=== PATIENT | male | born 1955 | race Two or more races ===

== ENCOUNTER 2020-07-22 23:31 | Emergency (ER) | payer BC, MEDICAID ==
[~2020-07-22] VITALS: Ht 172.7 cm; Wt 78.0 kg
--- NOTE | 2020-07-22 23:36 | NUR ---
PT BIBRA C/O NOSEBLEED S/P NASAL BIOPSY X1DAY. PER EMS PT + FOR ORTHOSTATIC VS. PT AAOX4 BREATHING EVENLY AND UNLABORED. PT STATES THAT HE HAS "PAIN ON THE RIGHT SIDE OF MY FACE AFTER THE PROCEDURE YESTERDAY." PT ATTACHED TO MONITOR AND POX. VSS PT SKIN WARM, DRY, AND INTACT. PT HAS 18G IN LEFT AC. PT GIVEN BLANKET AND CALL LIGHT WITHIN REACH
--- NOTE | 2020-07-22 23:47 | NUR ---
LAB AT BEDSIDE
[2020-07-23 00:01] LABS: BASOPHILS % (AUTO) 0.3 % (0.0-2.0); HEMATOCRIT 36 % (39-51); HEMOGLOBIN 12.1 g/dL (13.5-17.5); LYMPHOCYTES # (AUTO) 1.4 /CMM (0.8-4.8); LYMPHOCYTES % (AUTO) 15.3 % (20.0-44.0); MEAN CORPUSCULAR HGB CONC 33 g/dl (31.0-36.0); MEAN CORPUSCULAR VOLUME 86 fL (80-96); MONOCYTES # (AUTO) 0.7 /CMM (0.1-1.30); MONOCYTES % (AUTO) 7.7 % (2.0-12.0); NEUTROPHILS # (AUTO) 6.7 /CMM (1.8-8.9); NEUTROPHILS % (AUTO) 75.7 % (43.0-81.0); PLATELET COUNT (AUTO) 250 /CMM (150-450); RED BLOOD CELL COUNT(AUTO) 4.19 MIL/uL (4.5-6.0); WHITE BLOOD COUNT (AUTO) 8.9 K/uL (4.3-11.0)
--- NOTE | 2020-07-23 00:01 | NUR ---
XRAY AT BEDSIDE
[2020-07-23 00:10] LABS: CALCIUM, SERUM 9.1 mg/dL (8.5-10.1); CARBON DIOXIDE 30 mmol/L (21-32); CHLORIDE 100 mmol/L (98-107); CREATININE 1.3 mg/dL (0.6-1.3); GLUCOSE 151 mg/dL (74-106); SODIUM SERUM 135 mmol/L (136-145); UREA NITROGEN, BLOOD 16 mg/dL (7-18)
--- NOTE | 2020-07-23 00:35 | NUR ---
PT REFUSING COVID SWAB ASKING TO LEAVE THE HOSPITAL
--- NOTE | 2020-07-23 00:36 | NUR ---
Patient does not wish to proceed with medical care recommended by Dr. Salmon. Patient given information related to possible complications, up to and including , which could occur as a result of leaving the hospital at this time. Patient verbalizes understanding of risks involved due to leaving against medical advice. Patient has signed AMA form.
[2020-07-23 00:47] VITALS: BP 123/65
== END 2020-07-23 00:36 | disposition left against medical advice (07) ==
LOC: ER 23:33
DX: R53.1 Weakness (principal); E78.5 Hyperlipidemia, unspecified; E11.9 Type 2 diabetes mellitus without complications; Z88.5 Allergy status to narcotic agent
CPT/HCPCS: 36415; 71045-TC; 80048-TC; 84484-TC; 85025-TC; 86850-TC

== ENCOUNTER 2022-06-22 21:09 | Emergency (ER) | payer BC, OTHER ==
[~2022-06-22] VITALS: Ht 172.7 cm; Wt 78.0 kg
--- NOTE | 2022-06-22 21:10 | NUR ---
[id number] FROM HOME FOR GEN WEAKNESS, ON HOME O2, HX STG IV LUNG CA. PLACED IN BED, AAOX4, BREATHING EVEN AND UNLABORED SATURATING AT 97% WITH O2 3LIT VIA NC.
[2022-06-22] MEDS ORDERED: HYDROCODONE/APAP 5/325MG TABLET PO ONE (22:30)
[2022-06-22] MEDS ORDERED: IV NS 0.9% 1,000 ML BAG IV ONE (22:30)
--- NOTE | 2022-06-22 22:35 | NUR ---
BLOOD DRAWN AND SENT TO LAB
[2022-06-22] MEDS ORDERED: HYDROCODONE/APAP 5/325MG TABLET ONE (22:45)
--- NOTE | 2022-06-22 22:57 | NUR ---
UPDATE RONAL (DAUGHTER) [phone]
[2022-06-22] MEDS ORDERED: IV NS 0.9% 250 ML IV ONE (23:11)
[2022-06-22] MEDS ORDERED: IOHEXOL-350 100 ML VIAL IV ONE (23:11)
[2022-06-22] MEDS ORDERED: CT SWABBABLE VALVE TRANS SET 1 EA INFUS.SET MC ONE (23:11)
[2022-06-22 23:20] LABS: BASOPHILS # (AUTO) 0.2 K/uL (0.0-0.2); BASOPHILS % (AUTO) 3.3 % (0.0-2.0); EOSINOPHILS % (AUTO) 2.5 % (0.0-6.0); HEMATOCRIT 29 % (39-51); HEMOGLOBIN 9.4 g/dL (13.5-17.5); LYMPHOCYTES # (AUTO) 0.6 K/uL (0.8-4.8); LYMPHOCYTES % (AUTO) 8.4 % (20.0-44.0); MEAN CORPUSCULAR HGB CONC 32 g/dl (31.0-36.0); MEAN CORPUSCULAR VOLUME 83 fL (80-96); MONOCYTES # (AUTO) 0.6 K/uL (0.1-1.30); MONOCYTES % (AUTO) 8.7 % (2.0-12.0); NEUTROPHILS # (AUTO) 5.3 K/uL (1.8-8.9); NEUTROPHILS % (AUTO) 77.1 % (43.0-81.0); PLATELET COUNT (AUTO) 392 K/uL (150-450); WHITE BLOOD COUNT (AUTO) 6.8 K/uL (4.3-11.0)
[2022-06-23 00:20] LABS: ALANINE AMINOTRANSFERASE 48 U/L (12-78); ALKALINE PHOSPHATASE 584 U/L (46-116); ASPARTATE AMINOTRANSFERASE 121 U/L (15-37); BILIRUBIN,DIRECT 0.2 mg/dL (0.0-0.2); BILIRUBIN,TOTAL 0.4 mg/dL (0.2-1.0); CALCIUM, SERUM 8.7 mg/dL (8.5-10.1); CARBON DIOXIDE 26 mmol/L (21-32); CHLORIDE 97 mmol/L (98-107); GLUCOSE 63 mg/dL (74-106); POTASSIUM 3.7 mmol/L (3.5-5.1); SODIUM SERUM 132 mmol/L (136-145); TOTAL PROTEIN, SERUM 7.1 g/dL (6.4-8.2); UREA NITROGEN, BLOOD 28 mg/dL (7-18)
--- NOTE | 2022-06-23 00:51 | NUR ---
PT WAS ALREADY IN CT TABLE AND HE JUMP OUT OF IT AND STOOD UP. HE REFUSED CT IF HE WILL NOT HAVE PAIN MEDICATION. ANNA KINSEY CALLED ER AND DR BEDOLLA WAS MADE AWARE. DOES NOT ADVICE TO GIVE ANOTHER DOSE OF PAIN MEDS COZ PT RECEIVED IT AN HOUR AGO. PT IS MADE AWARE. PT REFUSED TO DO CT SCAN. MADE AWARE
--- NOTE | 2022-06-23 01:35 | NUR ---
[facility] CALLED ETA 90 MINS OR LESS
--- NOTE | 2022-06-23 02:10 | NUR ---
ABOUT TO GIVE REPORT TO [facility] FOR PT WHEN THE SUDDENLY APPEARED TO [employer] PT. PATIENT WANTS TO GO WITH [facility]. [facility] WAS CANCELLED
--- NOTE | 2022-06-23 02:16 | NUR ---
Patient discharged to home in stable condition. Written and verbal after care instructions given. Patient verbalizes understanding of instruction.
[2022-06-23 02:18] VITALS: BP 111/62
== END 2022-06-23 02:18 | disposition home or self-care (01) ==
LOC: ER 21:11
DX: R53.1 Weakness (principal); G89.29 Other chronic pain; E78.5 Hyperlipidemia, unspecified; E11.9 Type 2 diabetes mellitus without complications; Z85.118 Personal history of other malignant neoplasm of bronchus and lung; Z88.5 Allergy status to narcotic agent
CPT/HCPCS: 99284; 96360; 93005; 85025; 80048; 80076; 36415 ×2; 84484 ×2; 85730; J7030; J7050; Q9967